=== PATIENT | female | born 1990 | race Hispanic/Latino ===

== ENCOUNTER 2016-09-09 19:24 | Emergency (ER) | payer OTHER ==
[~2016-09-09] VITALS: Ht 167.6 cm; Wt 81.8 kg
[~2016-09-09 19:24] MED LIST: ASCO500T8 PO; Benzocaine TP; Docusate Sodium PO; FERR-74 PO; Hydrocodone/Acetaminophen PO; Ibuprofen PO; Lanolin TP; TUCPAD TP
[2016-09-09 19:45] VITALS: BP 128/78; PULSE 78; RESP 16; O2SAT 100
--- NOTE | 2016-09-09 21:31 | ED.REPORT ---
HPI- Female Date of Service Sep 09, 2016 ED Provider: Sloan Lopez MD A 26 year old female with no pertinent medical history presents to the ED complaining of a possible ruptured labial cyst. The pt has been experiencing left sided labial swelling and pain that she attributed to a cyst. She believes that the cyst has ruptured and is unsure how to avoid infection. Nursing Notes Stated Complaint: POSS CYST RUPTURE Chief Complaint: Skin Rash/Abscess Nursing Notes Reviewed: Yes Allergies: Coded Allergies: nickel (Verified Allergy, Intermediate, rash, 06/25/15) Scheduled ([Docusate Sodium]) 100 MG CAPSULE 100 MG PO BID Ascorbic Acid (Vitamin C) 500 Mg Tablet 500 MG PO BIDWM Ferrous Sulfate (Feosol) 325 Mg Tablet 325 MG PO BIDWM Scheduled PRN ([Benzocaine]) 1 SPRAY/GM SPRAY 1 SPRAY TP PRN PRN PRN for perineal pain ([Hydrocodone/Acetaminophen]) 1 TAB TABLET 1-2 TAB PO Q4H PRN PRN For Pain ([Ibuprofen]) 800 MG TABLET 800 MG PO Q6H PRN PRN For Pain ([Lanolin]) 14 APPLIC/7 GM OINT 1 APPLIC TP PRN PRN PRN apply to nipples Witch Catherine/Glycerin (A.e.r Pads) 12 Towelette/Pkg Towelette 1 TOWELETTE TP PRN PRN PRN for perineal pain General Time Seen by : 21:29 Chief Complaint Other (Ruptured labial cyst) Hx Obtained From: Patient Arrived By: Walk-in Sudden in Onset?: Yes Recent Healthcare: No recent doctor visit, No recent hospitalization Similar Sx Previous: No Past Medical History Past Medical History None Past Surgical History Reports: Tonsillectomy Family History Noncontributory Smoking History Current Every Day Smoker Social History Alcohol Use: Denies alcohol use Drug Use: THC Occupation lives with boyfriend, no work or school Ambulatory Status Independent Review of Systems Review of Systems Note: ruptured labial cyst Constitutional: Denies: Fever GI: Denies: Abdominal pain, Vomiting Musculoskeletal: Denies: Back pain, Neck pain Complete sys rev & neg: except as marked. Physical Exam Initial Vital Signs Vital Signs (First) Date Time Temp Pulse Resp B/P Pulse Ox O2 Delivery O2 Flow Rate FiO2 09/09/16 19:45 36.8 78 16 128/78 100 Room Air Initial VS: Reviewed Female Genitourinary: Skin Therapist present 1 cm Bartholin cyst small hole present, not draining well hidradenitis suppurativa General/Constitutional: Awake, Alert Respiratory / Chest: Atraumatic, Breath sounds NL, Breath sounds = bilat, No respiratory distress Cardiovascular: Heart rate NL, Regular rhythm, Heart sounds NL Abdomen: Atraumatic, Soft, Non-tender Back: Atraumatic, Full range of motion Skin: Color NL, Warm, Dry Head / Eyes: Atraumatic, Normocephalic, PERRL, EOMI ENT: Atraumatic, Airway patent, Mucous membranes moist Neck: Atraumatic, Supple, Full range of motion Upper Extremity / MS: Atraumatic, Full range of motion Lower Extremity / Pelvis / MS: Atraumatic, Full range of motion Neurologic: Oriented X3, Speech NL, No motor deficits, No sensory deficits Psychiatric: Affect NL, Mood NL Procedures Incision & Drainage Abscess Time: 22:17 Procedure Performed by: ED physician Consent / Setup / Site Prep: Informed consent provided, Consent from patient , Time-out performed, Hand hygiene observed, Stand sterile technique, Standard surgical scrub, Sterile drapes applied Location of Abscess: 7 mm incision on left labia, debrided bluntly Skin Preparation Agent: Betadine Local Anesthesia: Lidocaine 1% Incised Abscess with Scalpel: #15 Post-Procedure / Complications: Packing placed, Culture obtained, Gram stain ordered, Dressing applied, No complications, Condition improved, Tolerated procedure well, Patient stable Re-Eval/Medical Decision Med Decision/Clinical Course 26-year-old small sebaceous cyst or labium manges. This was incised and drained as detailed above. Debrided bluntly and good drainage achieved with the wound left open for hot soaks and bacitracin dressings. Follow up with PCP. Source of Hx: Old records Re-Evaluation/Progress : Time of Eval: 22:17 Patient Status: Condition improved Re-Evaluation/Progress Note: Pt rechecked, who is comfortable. I&D procedure is performed without complication. The plan for discharge is discussed. The pt understands and agrees with the plan. All questions are addressed at this time. Counseled Regarding: Diagnosis, Need for follow-up, When/why to return to ED Discharge & Departure Impression: Primary Impression: Abscess Additional Impressions: Sebaceous cyst Hidradenitis suppurativa Disposition: Home Discharge Condition All VS Reviewed: Yes Condition: Stable Patient Instructions: Abscess Incision and Drainage (ED) Additional Instructions: Sit in a hot bathtub three times a day for fifteen minutes per time. Reapply fresh gauze and menstrual pad to contain any drainage. Continue that until the wound heals. Follow up with your doctor in the office. Return for any immediate issues. Referrals: Lexa Stanton (PCP) Zeinab Attestation Portions of this note were transcribed by Yelena Moses. I, Dr. Lopez personally performed the history, physical exam and medical decision-making; I reviewed and confirmed the accuracy of the information in the transcribed note. Signed by: Zeinab Luna, 09/09/2016 and 2239. copies to: Lxea Stanton Christopher W MD Sep 09, 2016 21:30 YELENA MOSES Sep 09, 2016 21:40
== END 2016-09-09 22:43 | disposition home or self-care (01) ==
LOC: SED 19:24
DX: N75.1 Abscess of Bartholin's gland (principal); N94.89 Other specified conditions associated with female genital organs and menstrual cycle; L73.2 Hidradenitis suppurativa; F17.200 Nicotine dependence, unspecified, uncomplicated; Z88.8 Allergy status to other drugs, medicaments and biological substances